=== PATIENT | male | born 1960 | race American Indian/Alaskan Native ===

== ENCOUNTER 2020-12-10 17:35 | Inpatient (IN) | payer OTHER ==
[2020-12-10 21:14] LABS: Basophils % (Auto) 0.3 % (0.0-1.8); Eosinophils # (Auto) 0.1 K/mm3 (0.0-0.4); Eosinophils % (Auto) 1.9 % (0.0-4.3); Hematocrit 40.8 % (35.5-45.6); Lymphocytes # (Auto) 1.6 K/mm3 (1.2-5.4); Lymphocytes % (Auto) 26.2 % (13.4-35.0); Mean Corpuscular HGB Conc 34 % (32-34); Mean Corpuscular Volume 88 fl (84-94); Monocytes # (Auto) 0.6 K/mm3 (0.0-0.8); Monocytes % (Auto) 9.7 % (0.0-7.3); Platelet Count 323 K/mm3 (140-440); Red Blood Count 4.66 M/mm3 (3.65-5.03); Red Cell Distribution Width 14.5 % (13.2-15.2)
--- NOTE | 2020-12-10 21:17 | Cat Scan Report ---
CT HEAD WITHOUT CONTRAST INDICATION / CLINICAL INFORMATION: dizziness, intermittent blurry vision. TECHNIQUE: All CT scans at this location are performed using CT dose reduction for ALARA by means of automated exposure control. COMPARISON: None available. FINDINGS: HEMORRHAGE: None. EXTRA-AXIAL SPACES: Normal in size and morphology for the patient's age. VENTRICULAR SYSTEM: Normal in size and morphology for the patient's age. CEREBRAL PARENCHYMA: Hypodensities in the right basal ganglia and villa radiata likely represent chr onic small lacunar infarcts. MIDLINE SHIFT / HERNIATION: None. CEREBELLUM / BRAINSTEM: Hypodensities in the left cerebellar hemisphere likely representing chronic l acunar infarcts. ORBITS: Normal as visualized. SOFT TISSUES: No significant abnormality. SKULL: No significant abnormality. PARANASAL SINUSES / MASTOID AIR CELLS: Normal as visualized. ADDITIONAL FINDINGS: None. IMPRESSION: 1. No acute intracranial abnormality. 2. Chronic ischemic changes of the right basal ganglia and left cerebellum. Signer Name: Jose Magana MD Signed: 12/10/2020 9:12 PM Workstation Name: [id number]
[2020-12-10 21:25] LABS: INR 0.98 (0.87-1.13)
[2020-12-10 21:26] LABS: Partial Thromboplastin Time 25.7 Sec. (24.2-36.6)
[2020-12-10 21:39] LABS: Calcium 8.8 mg/dL (8.4-10.2)
--- NOTE | 2020-12-11 07:09 | Emergency Department Report ---
ED Dizziness HPI - General Chief Complaint: Dizziness Stated Complaint: DIZZINESS Time Seen by Provider: 12/11/20 06:30 Source: patient Mode of arrival: Ambulatory Limitations: No Limitations - History of Present Illness Initial Comments: 60-year-old male, history of diabetes, neuropathy, CVA, CAD with stent, degenerative disc disease with chronic back pain, presents to ED with dizziness x3 days. Patient states that he is from [place], [place]. Patient states he has been visiting in [place] for a week, staying with a friend. Patient states over the last 3 days he has been feeling dizzy and lightheaded. He reports nausea, no vomiting or diarrhea. He reports cold sweats. He denies any headache, cough, fever, diarrhea, abdominal pain, chest pain. Patient states he has not eaten in 3 days because he has been too dizzy to get up and walk to the kitchen. However, patient reports he has had an appetite. Patient states in September 2020 he was admitted in [place] for a diabetic foot ulcer. Prior to that admission, patient states he has been noncompliant with Metformin. Patient reports that he was diagnosed with diabetes in 2013, but opted to control his diabetes with diet. However, patient had never followed up with any physician to monitor his diabetes. Following his admission in September, patient states he was readmitted in October 2020, 1 month ago for chest pain. Patient states he ended up having a stent placed at that time. During that admission, he states he was told by the physicians that his kidney function was somewhat abnormal. Patient states he has not followed up with a receiving associate store in the office. Patient states he had a syncopal episode while in the waiting room. MD Complaint: dizziness -: days(s) (3) Description: lightheadedness, near-syncope History of Same: No History of Trauma: No Severity: moderate Improves With: remaining still Worsens With: position Associated Symptoms: syncope. denies: chest pain, cough, fever/chills, shortness of breath - Related Data Home Medications Medication Instructions Recorded Confirmed Last Taken Aspirin [Adult Aspirin] 81 mg PO DAILY 12/11/20 12/11/20 Unknown Atorvastatin [Lipitor Tab] 80 mg PO UNK 12/11/20 12/11/20 Unknown Clopidogrel [Plavix] 75 mg PO QDAY 12/11/20 12/11/20 Unknown Insulin Glargine,Hum.rec.anlog 7 unit SQ 12/11/20 12/11/20 Unknown [Lantus Solostar] Losartan [Cozaar] 25 mg PO QDAY 12/11/20 12/11/20 Unknown Nitroglycerin [Nitrostat] 0.4 mg SL [facility] 12/11/20 12/11/20 Unknown carvediloL [Coreg] 12.5 mg PO BID 12/11/20 12/11/20 Unknown Allergies Allergy/AdvReac Type Severity Reaction Status Date / Time No Known Allergies Allergy Unverified 12/10/20 19:51 ED Review of Systems ROS: Stated complaint: DIZZINESS Other details as noted in HPI Comment: All other systems reviewed and negative Constitutional: chills. denies: fever Respiratory: denies: cough, shortness of breath Cardiovascular: denies: chest pain Gastrointestinal: nausea. denies: abdominal pain, vomiting, diarrhea Neurological: denies: headache ED Past Medical Hx - Past Medical History Previous Medical History?: Yes Hx Diabetes: Yes Additional medical history: stent x1-october 2020. ulcer under R toe - Surgical History Past Surgical History?: Yes - Social History Smoking Status: Current Every Day Smoker - Medications Home Medications: Home Medications Medication Instructions Recorded Confirmed Last Taken Type Aspirin [Adult Aspirin] 81 mg PO DAILY 12/11/20 12/11/20 Unknown History Atorvastatin [Lipitor Tab] 80 mg PO [facility] 12/11/20 12/11/20 Unknown History Clopidogrel [Plavix] 75 mg PO QDAY 12/11/20 12/11/20 Unknown History Insulin Glargine,Hum.rec.anlog 7 unit SQ 12/11/20 12/11/20 Unknown History [Lantus Solostar] Losartan [Cozaar] 25 mg PO QDAY 12/11/20 12/11/20 Unknown History Nitroglycerin [Nitrostat] 0.4 mg SL [facility] 12/11/20 12/11/20 Unknown History carvediloL [Coreg] 12.5 mg PO BID 12/11/20 12/11/20 Unknown History ED Physical Exam - General Limitations: No Limitations General appearance: alert, in no apparent distress - Head Head exam: Present: atraumatic, normocephalic - Eye Eye exam: Present: normal appearance, EOMI - ENT ENT exam: Present: mucous membranes moist - Neck Neck exam: Present: normal inspection - Respiratory Respiratory exam: Present: normal lung sounds bilaterally. Absent: respiratory distress - Cardiovascular Cardiovascular Exam: Present: regular rate, normal rhythm - GI/Abdominal GI/Abdominal exam: Present: soft. Absent: distended, tenderness - Extremities Exam Extremities exam: Present: normal inspection - Neurological Exam Neurological exam: Present: alert, oriented X3 - Psychiatric Psychiatric exam: Present: normal affect, normal mood - Skin Skin exam: Present: warm, dry, intact, normal color ED Course Vital Signs 12/10/20 12/11/20 12/11/20 19:51 06:00 06:55 Temperature 98.2 F Pulse Rate 86 65 Respiratory 18 Rate Blood Pressure 135/81 Blood Pressure 127/69 [Right] O2 Sat by Pulse 98 98 Oximetry 12/11/20 12/11/20 12/11/20 07:00 07:16 07:30 Temperature Pulse Rate 64 65 60 Respiratory 9 L 10 L 12 Rate Blood Pressure 122/75 122/75 122/75 Blood Pressure [Right] O2 Sat by Pulse 93 98 99 Oximetry 12/11/20 12/11/20 12/11/20 07:46 08:00 08:15 Temperature Pulse Rate 60 65 68 Respiratory 10 L 8 L 17 Rate Blood Pressure 122/75 122/75 114/73 Blood Pressure [Right] O2 Sat by Pulse 100 98 98 Oximetry 12/11/20 12/11/20 12/11/20 08:31 08:45 09:01 Temperature Pulse Rate 70 77 70 Respiratory 11 L 12 12 Rate Blood Pressure 114/73 114/73 117/88 Blood Pressure [Right] O2 Sat by Pulse 98 99 95 Oximetry 12/11/20 12/11/20 12/11/20 09:15 09:31 09:45 Temperature Pulse Rate 71 78 69 Respiratory 13 12 13 Rate Blood Pressure 117/88 117/88 117/88 Blood Pressure [Right] O2 Sat by Pulse 92 98 97 Oximetry 12/11/20 12/11/20 12/11/20 10:01 10:16 10:31 Temperature Pulse Rate 70 78 74 Respiratory 18 13 13 Rate Blood Pressure 145/82 145/82 145/82 Blood Pressure [Right] O2 Sat by Pulse 98 99 99 Oximetry 12/11/20 12/11/20 12/11/20 10:45 11:01 11:15 Temperature Pulse Rate 80 73 89 Respiratory 17 13 13 Rate Blood Pressure 145/82 152/74 152/74 Blood Pressure [Right] O2 Sat by Pulse 98 97 98 Oximetry 12/11/20 12/11/20 12/11/20 11:31 12:53 13:01 Temperature Pulse Rate 75 65 Respiratory 16 10 L Rate Blood Pressure 152/74 152/74 153/69 Blood Pressure [Right] O2 Sat by Pulse 97 95 94 Oximetry 12/11/20 12/11/20 12/11/20 13:15 13:30 13:31 Temperature Pulse Rate 70 68 68 Respiratory 11 L 11 L Rate Blood Pressure 152/74 125/82 125/82 Blood Pressure [Right] O2 Sat by Pulse 98 95 Oximetry 12/11/20 12/11/20 13:49 14:01 Temperature Pulse Rate 79 70 Respiratory 24 10 L Rate Blood Pressure 125/82 141/81 Blood Pressure [Right] O2 Sat by Pulse Oximetry ED Medical Decision Making - Lab Data Result diagrams: 12/10/20 20:15 12/10/20 20:15 - EKG Data -: EKG Interpreted by [facility] EKG shows normal: sinus rhythm, axis, intervals, QRS complexes, ST-T waves Rate: normal - EKG Data Interpretation: no acute changes - Radiology Data Radiology results: report reviewed, image reviewed - Medical Decision Making 60-year-old male presents to ED with 3-day history of dizziness and lightheadedness. Patient also reports 1 syncopal episode as well. Vital signs are stable. CT head shows evidence of chronic left cerebellar and right basal ganglia infarcts. Labs show evidence of renal insufficiency with BUN and creatinine of 46 and 2.3, and metabolic acidosis with bicarb of 15. Remainder of labs are unremarkable. I spoke with receiving associate store who will consult on the patient. Patient will be admitted by hospitalist, for further management. - Differential Diagnosis CVA, dehydration, arrhythmia Critical care attestation.: If time is entered above; I have spent that time in minutes in the direct care of this critically ill patient, excluding procedure time. ED Disposition Clinical Impression: Syncope, Acute renal failure Disposition: OP ADMIT IP TO THIS HOSP Is pt being admited?: Yes Condition: Stable Time of Disposition: 08:51
--- NOTE | 2020-12-11 08:33 | XRay Report ---
CHEST 1 VIEW, 12/11/2020 7:23 AM CLINICAL INFORMATION/INDICATION: Weakness COMPARISON: None. FINDINGS: SUPPORT DEVICES: None. HEART: The cardiac silhouette is normal in size. LUNGS/PLEURA: The lungs are clear of focal airspace disease or significant pleural effusion. ADDITIONAL FINDINGS: No additional acute findings. IMPRESSION: 1. No evidence of acute cardiopulmonary process. Signer Name: Aleja Jacobsen MD Signed: 12/11/2020 8:28 AM Workstation Name: [id number]
--- NOTE | 2020-12-11 10:11 | History and Physical Report ---
History of Present Illness Date of examination: 12/11/20 Date of admission: 12/11/20 08:51 Chief complaint: Dizziness, syncopal episode History of present illness: 60-year-old obese male patient with significant past medical history of hypertension diabetes mellitus diabetic neuropathy history of CVA coronary artery disease status post stent degenerative disc disease with chronic back pain presented to the emergency room with history of dizziness for the last 3 d ays. Patient is visiting a friend from [place] to [place] for a week, and he had a syncopal episode while waiting in the emergency room Patient denies any chest pain or palpitation denies and denies any fever nausea vomiting or diarrhea, patient denies any cough sick contacts with Covid patients, Initial work-up is consistent with acute kidney injury with elevated creatinine, dehydration CT head without contrast did not show any acute intracranial abnormality Chest x-ray no acute abnormality noted Patient is on multiple home medication claims compliance with the medications Past History Past Medical History: CAD (Status post stent), diabetes, GERD, hypertension, hyperlipidemia, other (Degenerative disc disease) Past Surgical History: PTCA, Other (Back surgery) Social history: smoking. denies: alcohol abuse, prescription drug abuse Family history: hypertension Medications and Allergies Allergies Allergy/AdvReac Type Severity Reaction Status Date / Time No Known Allergies Allergy Unverified 12/10/20 19:51 Home Medications Medication Instructions Recorded Confirmed Last Taken Type Aspirin [Adult Aspirin] 81 mg PO DAILY 12/11/20 12/11/20 Unknown History Atorvastatin [Lipitor Tab] 80 mg PO UNK 12/11/20 12/11/20 Unknown History Clopidogrel [Plavix] 75 mg PO QDAY 12/11/20 12/11/20 Unknown History Insulin Glargine,Hum.rec.anlog 7 unit SQ [facility] 12/11/20 12/11/20 Unknown History [Lantus Solostar] Losartan [Cozaar] 25 mg PO QDAY 12/11/20 12/11/20 Unknown History Nitroglycerin [Nitrostat] 0.4 mg SL UNK 12/11/20 12/11/20 Unknown History carvediloL [Coreg] 12.5 mg PO BID 12/11/20 12/11/20 Unknown History Review of Systems Constitutional: weakness, malaise, no weight loss, no weight gain, no anorexia, no fatigue Ears, nose, mouth and throat: no nasal congestion, no nasal discharge Cardiovascular: syncope, lightheadedness, no chest pain, no orthopnea, no palpitations Respiratory: no cough, no excessive sputum, no shortness of breath, no dyspnea on exertion Gastrointestinal: no abdominal pain, no nausea, no vomiting, no diarrhea Genitourinary Male: no dysuria, no hematuria, no flank pain Musculoskeletal: myalgias, arthritis, no neck stiffness, no neck pain Integumentary: no rash, no lesions Neurological: syncope, no parathesias, no numbness, no tingling, no seizures Psychiatric: no anxiety, no depression Endocrine: no cold intolerance, no heat intolerance Hematologic/Lymphatic: no easy bruising, no easy bleeding Allergic/Immunologic: no urticaria, no allergic rhinitis Exam - Constitutional Vitals: Temp Pulse Resp BP Pulse Ox 98.2 F 68 17 114/73 98 12/10/20 19:51 12/11/20 08:15 12/11/20 08:15 12/11/20 08:15 12/11/20 08:15 General appearance: Present: no acute distress, well-nourished, obese - EENT Eyes: Present: PERRL, EOM intact - Neck Neck: Present: supple, normal ROM - Respiratory Respiratory effort: normal Respiratory: bilateral: diminished, negative: rales, rhonchi, wheezing - Cardiovascular Rhythm: regular Heart Sounds: Present: S1 & S2 - Extremities Extremities: no ischemia, No edema - Abdominal General gastrointestinal: Present: soft, non-tender, non-distended, normal bowel sounds - Integumentary Integumentary: Present: clear, warm - Musculoskeletal Musculoskeletal: strength equal bilaterally, generalized weakness - Psychiatric Psychiatric: appropriate mood/affect, cooperative - Neurologic Neurologic: CNII-XII intact, moves all extremities HEART Score - HEART Score Troponin: Troponin T 0.029 ng/mL (0.00-0.029) 12/10/20 20:15 Results - Labs CBC & Chem 7: 12/10/20 20:15 12/10/20 20:15 Labs: Abnormal lab results 12/10/20 12/10/20 12/10/20 Range/Units 20:02 20:15 20:15 [place] % (Auto) 9.7 H (0.0-7.3) % Carbon Dioxide 15 L (22-30) mmol/L BUN 46 H (9-20) mg/dL Creatinine 2.3 H (0.8-1.3) mg/dL Glucose 143 H (75-100) mg/dL POC Glucose 139 H (70-105) mg/dL Assessment and Plan --Dizziness/syncope; Fall precautions, syncope work-up CT head without contrast use no acute abnormalities Check carotid Doppler, echocardiogram Orthostats, will check PT OT evaluation and recommendations --Acute kidney injury; vasomotor nephropathy Monitor renal function, avoid nephrotoxin Nephrology consulted, renal ultrasound Supportive care --History of coronary artery disease status post PCI; Continue dual antiplatelet therapy, beta-blockers, MARGARET inhibitors and nitrates --Type 2 diabetes mellitus; moderate control Accu-Chek sliding scale coverage ADA diet Long-acting insulin as needed --Hypertension; moderate control Resume home antihypertensives, as needed medications --Obesity; BMI 35.7 Patient needs weight reduction when medically stable Diet modification exercise as tolerated and weight reduction rectocele rectocele metabolic --Dyslipidemia; Low-cholesterol diet, continue statin --Acidosis; Secondary to acute kidney injury, reduce IV hydration Closely monitor --DVT prophylaxis; Heparin renal dose --Full CODE STATUS Physical therapy, Occupational Therapy We will closely monitor patient and adjust management as needed Plan of care reviewed with the patient and his nurse
[2020-12-11] MEDS ORDERED: NON-FORMULARY EACH (Atorvastatin [Lipitor] 80 MG Tablet) PO SCH (10:15)
[2020-12-11] MEDS ORDERED: SODIUM CHLORIDE 0.9% 1000 ML 1,000 ML IV SCH (10:30)
--- NOTE | 2020-12-11 10:34 | Electrocardiograph Report ---
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 No previous ECG available for comparison Electronically Signed On 12-11-2020 10:33:45 EDT by Anant Esteban
--- NOTE | 2020-12-11 12:21 | Consultation ---
History of Present Illness - Reason for Consult Consult date: 12/11/20 acute renal failure, chronic renal failure - History of Present Illness 60-year-old male presented to ED with dizziness x3 days. He reported nausea, no vomiting or diarrhea. in September 2020 he was admitted in [place] for a diabetic foot ulcer. he was readmitted in October 2020, 1 month ago for chest pain. Patient states he ended up having a stent placed at that time, he was told then he had abnormal kidney function but has not followed up with a kinesiology internship as an outpatient. renal consult was requested for management of abnormal kidne function. Medications and Allergies Allergies Allergy/AdvReac Type Severity Reaction Status Date / Time No Known Allergies Allergy Unverified 12/10/20 19:51 Home Medications Medication Instructions Recorded Confirmed Last Taken Type Aspirin [Adult Aspirin] 81 mg PO DAILY 12/11/20 12/11/20 Unknown History Atorvastatin [Lipitor Tab] 80 mg PO UNK 12/11/20 12/11/20 Unknown History Clopidogrel [Plavix] 75 mg PO QDAY 12/11/20 12/11/20 Unknown History Insulin Glargine,Hum.rec.anlog 7 unit SQ AC 12/11/20 12/11/20 Unknown History [Lantus Solostar] Losartan [Cozaar] 25 mg PO QDAY 12/11/20 12/11/20 Unknown History Nitroglycerin [Nitrostat] 0.4 mg SL UNK 12/11/20 12/11/20 Unknown History carvediloL [Coreg] 12.5 mg PO BID 12/11/20 12/11/20 Unknown History Active Meds: Active Medications Aspirin (Aspirin Ec 81 Mg Tab) 81 mg PO DAILY [facility] Atorvastatin Calcium (Atorvastatin 40 Mg Tab) 80 mg PO QHS [facility] Carvedilol (Carvedilol 12.5 Mg Tab) 12.5 mg PO BID [facility] Clopidogrel Bisulfate (Clopidogrel 75 Mg Tab) 75 mg PO QDAY [facility] Heparin Sodium (Porcine) (Heparin 5,000 Unit/1 Ml Vial) 5,000 unit SUB-Q Q12HR [facility] Sodium Chloride (Nacl 0.9% 1000 Ml) 1,000 mls @ 100 mls/hr IV DIRECT [facility] Insulin Human Lispro (Insulin Lispro 100 Unit/Ml) 0 unit SUB-Q ACHS [facility]; Protocol Losartan Potassium (Losartan 25 Mg Tab) 25 mg PO QDAY [facility] Review of Systems All systems: negative (dizzines) Exam - Vital Signs Vital signs: Vital Signs Temp Pulse Resp BP Pulse Ox 98.2 F 86 18 127/69 98 12/10/20 19:51 12/10/20 19:51 12/10/20 19:51 12/10/20 19:51 12/10/20 19:51 Results - Lab Results 12/12/20 05:40 12/12/20 05:40 Most recent lab results Calcium 8.8 mg/dL (8.4-10.2) 12/10/20 20:15 Assessment and Plan renal failure, likely acute on chronic Dizziness DM type II HTN hold losartn for now cont IVF will check urine lytes will check renal US renally dose meds strict I&O daily weight
[2020-12-11] MEDS: CLOPIDOGREL 75 MG TAB PO SCH (13:30)
[2020-12-11] MEDS: HEPARIN 5,000 UNIT/1 ML VIAL SUB-Q SCH ×2 (13:30→22:44)
[2020-12-11] MEDS: ASPIRIN EC 81 MG TAB PO SCH (13:30)
[2020-12-11] MEDS: carvediloL 12.5 MG TAB PO SCH ×2 (13:30→22:40)
[2020-12-11] MEDS: INSULIN LISPRO 100 UNIT/ML SUB-Q SCH ×3 (14:05→22:41)
--- NOTE | 2020-12-11 15:36 | Ultrasound Report ---
ULTRASOUND RENAL INDICATION / CLINICAL INFORMATION: Renal failure. COMPARISON: None available. FINDINGS: RIGHT KIDNEY: Length = 10.9 cm. [normal > 9 cm] No hydronephrosis, discrete renal mass, or renal calculi. Mildly increased echogenicity of the renal parenchyma is noted. LEFT KIDNEY: Length = 9.9 cm. [normal > 9 cm] No hydronephrosis, discrete renal mass, or renal calculi. Mildly increased echogenicity of the renal parenchyma is noted. URINARY BLADDER: No significant abnormality. FREE FLUID: None. ADDITIONAL FINDINGS: None. IMPRESSION: No evidence of hydronephrosis. Mildly increased echogenic appearance of the kidneys bilaterally, sugg estive of chronic medical renal disease. Signer Name: Geremias Raman MD Signed: 12/11/2020 3:31 PM Workstation Name: [id number]
[2020-12-12 06:38] LABS: Basophils % (Auto) 0.2 % (0.0-1.8); Eosinophils # (Auto) 0.1 K/mm3 (0.0-0.4); Eosinophils % (Auto) 1.8 % (0.0-4.3); Hemoglobin 13.5 gm/dl (11.8-15.2); Lymphocytes % (Auto) 13.2 % (13.4-35.0); Mean Corpuscular HGB Conc 35 % (32-34); Mean Corpuscular Volume 87 fl (84-94); Monocytes # (Auto) 0.9 K/mm3 (0.0-0.8); Monocytes % (Auto) 12.8 % (0.0-7.3); Platelet Count 278 K/mm3 (140-440); Red Blood Count 4.49 M/mm3 (3.65-5.03); Red Cell Distribution Width 14.4 % (13.2-15.2)
[2020-12-12 06:47] LABS: Calcium 8.9 mg/dL (8.4-10.2)
[2020-12-12] MEDS: INSULIN LISPRO 100 UNIT/ML SUB-Q SCH ×7 (07:16→22:11)
[2020-12-12] MEDS ORDERED: NON-FORMULARY EACH (Insulin Glargine,Hum.Rec.Anlog [Lantus Solostar] 100 UNIT/ML Insuln.Pe SQ SCH (07:30)
[2020-12-12] MEDS ORDERED: LOSARTAN 25 MG TAB PO SCH (10:00)
[2020-12-12 10:18] LABS: Chol/HDL Ratio 3.43 %
[2020-12-12] MEDS: CLOPIDOGREL 75 MG TAB PO SCH (10:37)
[2020-12-12] MEDS: HEPARIN 5,000 UNIT/1 ML VIAL SUB-Q SCH ×2 (10:37→22:10)
[2020-12-12] MEDS: carvediloL 12.5 MG TAB PO SCH ×2 (10:37→22:10)
[2020-12-12] MEDS: ASPIRIN EC 81 MG TAB PO SCH (10:37)
--- NOTE | 2020-12-12 11:54 | Progress Note ---
Assessment and Plan renal failure, likely acute on chronic Dizziness DM type II HTN rising Cr for unclear reason, unknow baseline renal US -ve for obstruction cont NS urine studies were not collected, will recheck and order secondary GN, vasculitis and paraprotein work up renally dose meds strict I&O daily weight Subjective Date of service: 12/12/20 Principal diagnosis: CHRISTINE Interval history: denies acute issues, comfortable Objective - Vital Signs Vital signs: Vital Signs - 12hr 12/12/20 12/12/20 12/12/20 01:00 03:31 07:51 Temperature 97.6 F 98.1 F Pulse Rate 69 60 54 L Respiratory 16 18 Rate Blood Pressure 147/89 118/63 O2 Sat by Pulse 90 98 Oximetry - General Appearance General appearance: well-developed, well-nourished, appears stated age EENT: ATNC, PERRL, mucous membranes moist Neck: no JVD, no carotid bruit Respiratory: Present: Clear to Ascultation. Absent: Rales, Ronchi Cardiology: regular, S1S2 Gastrointestinal: normoactive bowel sounds, no hypoactive bowel sounds, no absent bowel sounds, no tenderness, no distended Integumentary: no rash, warm and dry Neurologic: no focal deficit, no asterixis, alert and oriented x3 Musculoskeletal: other (no edema in BLE) Psychiatric: cooperative - Lab 12/12/20 05:40 12/12/20 05:40 Most recent lab results Calcium 8.9 mg/dL (8.4-10.2) 12/12/20 05:40 Phosphorus 5.80 mg/dL (2.5-4.5) H 12/12/20 05:40 Medications & Allergies - Medications Allergies/Adverse Reactions: Allergies No Known Allergies Allergy (Unverified 12/10/20 19:51) Home Medications: Home Medications Medication Instructions Recorded Confirmed Last Taken Type Aspirin [Adult Aspirin] 81 mg PO DAILY 12/11/20 12/11/20 Unknown History Atorvastatin [Lipitor Tab] 80 mg PO UNK 12/11/20 12/11/20 Unknown History Clopidogrel [Plavix] 75 mg PO QDAY 12/11/20 12/11/20 Unknown History Insulin Glargine,Hum.rec.anlog 7 unit SQ AC 12/11/20 12/11/20 Unknown History [Lantus Solostar] Losartan [Cozaar] 25 mg PO QDAY 12/11/20 12/11/20 Unknown History Nitroglycerin [Nitrostat] 0.4 mg SL UNK 12/11/20 12/11/20 Unknown History carvediloL [Coreg] 12.5 mg PO BID 12/11/20 12/11/20 Unknown History Active Medications: Generic Name Dose Route Start Last Admin Trade Name Adam PRN Reason Stop Dose Admin Aspirin 81 mg 12/11/20 13:00 12/12/20 10:37 Aspirin Ec 81 Mg Tab PO 81 mg DAILY [facility] Administration Atorvastatin Calcium 80 mg 12/11/20 22:00 12/11/20 22:40 Atorvastatin 40 Mg Tab PO 80 mg QHS [facility] Administration Carvedilol 12.5 mg 12/11/20 13:00 12/12/20 10:37 Carvedilol 12.5 Mg Tab PO 12.5 mg BID [facility] Administration Clopidogrel Bisulfate 75 mg 12/11/20 13:00 12/12/20 10:37 Clopidogrel 75 Mg Tab PO 75 mg QDAY [facility] Administration Heparin Sodium (Porcine) 5,000 unit 12/11/20 13:00 12/12/20 10:37 Heparin 5,000 Unit/1 Ml Vial SUB-Q 5,000 unit Q12HR [facility] Administration Sodium Chloride 1,000 mls @ 100 mls/hr 12/11/20 10:30 Nacl 0.9% 1000 Ml IV DIRECT [facility] Insulin Human Lispro 0 unit 12/11/20 11:30 12/12/20 10:37 Insulin Lispro 100 Unit/Ml SUB-Q 2 unit ACHS [facility] Administration Protocol Insulin Human Lispro 10 unit 12/12/20 06:00 12/12/20 07:16 Insulin Lispro 100 Unit/Ml SUB-Q Not Given 0600,1200,1800 [facility]
--- NOTE | 2020-12-12 12:46 | Vascular Lab Report ---
DUPLEX DOPPLER ULTRASOUND CAROTID, BILATERAL INDICATION / CLINICAL INFORMATION: Syncope. COMPARISON: None available. FINDINGS: RIGHT CAROTID: No significant abnormality - PLAQUE ESTIMATE (%): < 50% - CCA velocity: 57.4 cm/sec. - ICA peak systolic velocity: 60 cm/sec. - ICA/CCA PSV Ratio: 1.05 Right Vertebral Artery: Antegrade flow. LEFT CAROTID: No significant abnormality - PLAQUE ESTIMATE (%): < 50% - CCA velocity: 64.8 cm/sec. - ICA peak systolic velocity: 75.7 cm/sec. - ICA/CCA PSV Ratio: 1.17 Left Vertebral Artery: Antegrade flow. IMPRESSION: 1. Right Internal Carotid Artery: Less than 50% diameter stenosis. 2. Left Internal Carotid Artery: Less than 50% diameter stenosis. Velocity criteria are extrapolated from diameter data as defined by the Society of Radiologists in Ul trasound Consensus Conference, Radiology 2003; 229;340-346. NO STENOSIS (NORMAL) - Plaque = none; ICA PSV < 125 cm/sec; ICA/CCA PSV Ratio < 2.0 <50% STENOSIS - Plaque < 50%; ICA PSV < 125 cm/sec; ICA/CCA PSV Ratio < 2.0 50-69% STENOSIS - Plaque > 50%; ICA PSV = 125-230 cm/sec; ICA/CCA PSV Ratio = 2.0-4.0 >70% BUT <100% STENOSIS - Plaque > 50%; ICA PSV > 230 cm/sec; ICA/CCA PSV Ratio > 4.0 NEAR OCCLUSION - Plaque = visible lumen; ICA PSV = high/low/none; ICA/CCA PSV Ratio = variable TOTAL OCCLUSION - Plaque = no lumen; ICA PSV = none; ICA/CCA PSV Ratio = N/A Signer Name: Evangelista Blair DO Signed: 12/12/2020 12:42 PM Workstation Name: [id number]
--- NOTE | 2020-12-12 12:52 | Progress Note ---
Assessment and Plan Assessment and plan: --Dizziness/syncope; No new episodes of syncope since admission Syncope work-up CT head, carotid Doppler, echocardiogram within normal limits Fall precautions, Orthostats, will check PT OT evaluation and recommendations --Acute kidney injury; worsening renal function Nephrology following vasomotor nephropathy Monitor renal function, avoid nephrotoxin Nephrology consulted, renal ultrasound Supportive care --History of coronary artery disease status post PCI; Continue dual antiplatelet therapy, beta-blockers, MARGARET inhibitors and nitrates --Type 2 diabetes mellitus; moderate control Accu-Chek sliding scale coverage ADA diet Long-acting insulin as needed --Hypertension; moderate control Resume home antihypertensives, as needed medications --Obesity; BMI 35.7 Patient needs weight reduction when medically stable Diet modification exercise as tolerated and weight reduction rectocele rectocele metabolic --Dyslipidemia; Low-cholesterol diet, continue statin --Acidosis; Secondary to acute kidney injury, reduce IV hydration Closely monitor --DVT prophylaxis; Heparin renal dose --Full CODE STATUS Physical therapy, Occupational Therapy We will closely monitor patient and adjust management as needed Plan of care reviewed with the patient and his nurse Brief history and hospital course; 60-year-old male patient was admitted with syncope, dizziness Initial work-up consistent with acute kidney injury, syncope work-up so far negative Follow renal function, disposition per nephrology 12/12/2020; Syncope work-up negative, no new episodes Worsening renal function, nephrology following Disposition per nephrology History Interval history: I have seen and examined the patient at the bedside Patient's chart and medications reviewed Patient did not have any new episodes of syncope Vital signs noted Hospitalist Physical - Constitutional Vitals: Temp Pulse Resp BP Pulse Ox 98.1 F 55 L 18 118/63 97 12/12/20 07:51 12/12/20 10:00 12/12/20 07:51 12/12/20 07:51 12/12/20 10:00 General appearance: Present: no acute distress, well-nourished, obese - EENT Eyes: Present: PERRL, EOM intact - Neck Neck: Present: supple, normal ROM - Respiratory Respiratory effort: normal Respiratory: bilateral: diminished, negative: rales, rhonchi, wheezing - Cardiovascular Rhythm: regular Heart Sounds: Present: S1 & S2 - Extremities Extremities: no ischemia, No edema - Abdominal General gastrointestinal: soft, non-tender, non-distended, normal bowel sounds - Integumentary Integumentary: Present: clear, warm - Psychiatric Psychiatric: appropriate mood/affect, cooperative - Neurologic Neurologic: moves all extremities HEART Score - HEART Score Troponin: Troponin T 0.031 ng/mL (0.00-0.029) H 12/12/20 05:40 Results - Labs CBC & Chem 7: 12/13/20 05:34 12/13/20 05:34 Labs: Laboratory Last Values WBC 7.4 K/mm3 (4.5-11.0) 12/12/20 05:40 RBC 4.49 M/mm3 (3.65-5.03) 12/12/20 05:40 Hgb 13.5 gm/dl (11.8-15.2) 12/12/20 05:40 Hct 39.0 % (35.5-45.6) 12/12/20 05:40 MCV 87 fl (84-94) 12/12/20 05:40 MCH 30 pg (28-32) 12/12/20 05:40 MCHC 35 % (32-34) H 12/12/20 05:40 RDW 14.4 % (13.2-15.2) 12/12/20 05:40 Plt Count 278 K/mm3 (140-440) 12/12/20 05:40 Lymph % (Auto) 13.2 % (13.4-35.0) L 12/12/20 05:40 [place] % (Auto) 12.8 % (0.0-7.3) H 12/12/20 05:40 Eos % (Auto) 1.8 % (0.0-4.3) 12/12/20 05:40 Baso % (Auto) 0.2 % (0.0-1.8) 12/12/20 05:40 Lymph # (Auto) 1.0 K/mm3 (1.2-5.4) L 12/12/20 05:40 [place] # (Auto) 0.9 K/mm3 (0.0-0.8) H 12/12/20 05:40 Eos # (Auto) 0.1 K/mm3 (0.0-0.4) 12/12/20 05:40 Baso # (Auto) 0.0 K/mm3 (0.0-0.1) 12/12/20 05:40 Seg Neutrophils % 72.0 % (40.0-70.0) H 12/12/20 05:40 Seg Neutrophils # 5.3 K/mm3 (1.8-7.7) 12/12/20 05:40 PT 13.6 Sec. (12.2-14.9) 12/10/20 20:15 INR 0.98 (0.87-1.13) 12/10/20 20:15 APTT 25.7 Sec. (24.2-36.6) 12/10/20 20:15 Thrombin Time 16.6 Sec. (15.1-19.6) 12/10/20 20:15 Sodium 135 mmol/L (137-145) L 12/12/20 05:40 Potassium 3.9 mmol/L (3.6-5.0) 12/12/20 05:40 Chloride 97.7 mmol/L (98-107) L 12/12/20 05:40 Carbon Dioxide 23 mmol/L (22-30) D 12/12/20 05:40 Anion Gap 18 mmol/L 12/12/20 05:40 BUN 60 mg/dL (9-20) H 12/12/20 05:40 Creatinine 3.4 mg/dL (0.8-1.3) H 12/12/20 05:40 Estimated GFR 23 ml/min 12/12/20 05:40 BUN/Creatinine Ratio 18 % 12/12/20 05:40 Glucose 152 mg/dL (75-100) H 12/12/20 05:40 POC Glucose 215 mg/dL (70-105) H 12/12/20 11:57 Calcium 8.9 mg/dL (8.4-10.2) 12/12/20 05:40 Phosphorus 5.80 mg/dL (2.5-4.5) H 12/12/20 05:40 Lactate Dehydrogenase 210 units/L (91-180) H 12/11/20 15:30 Total Creatine Kinase 204 units/L (55-170) H 12/12/20 05:40 CK-MB (CK-2) 4.0 ng/mL (0.0-4.0) 12/12/20 05:40 CK-MB (CK-2) Rel Index 1.9 (0-4) 12/12/20 05:40 Troponin T 0.031 ng/mL (0.00-0.029) H 12/12/20 05:40 Triglycerides 121 mg/dL (2-149) 12/12/20 05:40 Cholesterol 127 mg/dL (50-199) 12/12/20 05:40 LDL Cholesterol Direct 80 mg/dL (50-130) 12/12/20 05:40 HDL Cholesterol 37 mg/dL (40-59) L 12/12/20 05:40 Cholesterol/HDL Ratio 3.43 % 12/12/20 05:40 Byrd/IV: Voiding Method Toilet Active Medications - Current Medications Current Medications: Generic Name Dose Route Start Last Admin Trade Name Freq PRN Reason Stop Dose Admin Aspirin 81 mg 12/11/20 13:00 12/12/20 10:37 Aspirin Ec 81 Mg Tab PO 81 mg DAILY JENA Administration Atorvastatin Calcium 80 mg 12/11/20 22:00 12/11/20 22:40 Atorvastatin 40 Mg Tab PO 80 mg QHS JENA Administration Carvedilol 12.5 mg 12/11/20 13:00 12/12/20 10:37 Carvedilol 12.5 Mg Tab PO 12.5 mg BID JENA Administration Clopidogrel Bisulfate 75 mg 12/11/20 13:00 12/12/20 10:37 Clopidogrel 75 Mg Tab PO 75 mg QDAY JENA Administration Heparin Sodium (Porcine) 5,000 unit 12/11/20 13:00 12/12/20 10:37 Heparin 5,000 Unit/1 Ml Vial SUB-Q 5,000 unit Q12HR JENA Administration Sodium Chloride 1,000 mls @ 100 mls/hr 12/11/20 10:30 Nacl 0.9% 1000 Ml IV DIRECT [facility] Insulin Human Lispro 0 unit 12/11/20 11:30 12/12/20 10:37 Insulin Lispro 100 Unit/Ml SUB-Q 2 unit ACHS [facility] Administration Protocol Insulin Human Lispro 10 unit 12/12/20 06:00 12/12/20 07:16 Insulin Lispro 100 Unit/Ml SUB-Q Not Given 0600,1200,1800 [facility]
[2020-12-12 14:30] LABS: Smear for Schistocytes None Seen
[2020-12-12 16:19] LABS: Creatinine,Urine 114.3 mg/dL (0.1-20.0)
[2020-12-12 16:25] LABS: Creatinine,Urine 113.4 mg/dL (0.1-20.0); Protein/Creatinine Ratio,Urine 0.44
[2020-12-13 06:40] LABS: Basophils % (Auto) 0.1 % (0.0-1.8); Eosinophils # (Auto) 0.1 K/mm3 (0.0-0.4); Eosinophils % (Auto) 1.7 % (0.0-4.3); Hematocrit 39.4 % (35.5-45.6); Hemoglobin 13.4 gm/dl (11.8-15.2); Lymphocytes # (Auto) 1.1 K/mm3 (1.2-5.4); Mean Corpuscular HGB Conc 34 % (32-34); Mean Corpuscular Volume 86 fl (84-94); Monocytes # (Auto) 0.6 K/mm3 (0.0-0.8); Monocytes % (Auto) 9.3 % (0.0-7.3); Platelet Count 315 K/mm3 (140-440); Red Cell Distribution Width 14.2 % (13.2-15.2)
--- NOTE | 2020-12-13 09:22 | Progress Note ---
Assessment and Plan renal failure, likely acute on chronic Dizziness DM type II HTN Cr conto to fluctuate, down to 3.1 today can be discharged from renal standpoint, to be followed as an outpatient renal US -ve for obstruction cont NS secondary GN, vasculitis and paraprotein work up ordered, can be followed as an outpatient renally dose meds strict I&O daily weight Subjective Date of service: 12/13/20 Principal diagnosis: CHRISTINE Interval history: denies acute issues, no overnight events Objective - Vital Signs Vital signs: Vital Signs - 12hr 12/12/20 12/12/20 12/12/20 22:00 22:10 22:57 Temperature 97.8 F Pulse Rate 81 93 H 80 Respiratory 18 Rate Respiratory 20 Rate [Bilateral Lower Leg] Blood Pressure 129/64 127/67 O2 Sat by Pulse 98 98 Oximetry 12/13/20 03:22 Temperature 97.8 F Pulse Rate 69 Respiratory 18 Rate Respiratory Rate [Bilateral Lower Leg] Blood Pressure 147/82 O2 Sat by Pulse 97 Oximetry - General Appearance General appearance: well-developed, well-nourished, appears stated age EENT: ATNC, PERRL, mucous membranes moist Neck: no JVD, no carotid bruit Respiratory: Present: Clear to Ascultation. Absent: Rales, Ronchi Cardiology: regular, S1S2 Gastrointestinal: normoactive bowel sounds, no tenderness, no distended, no masses Integumentary: no rash, warm and dry Neurologic: no focal deficit, no asterixis, alert and oriented x3 Musculoskeletal: other (no edema in BLE) Psychiatric: mood/affect appropriate - Lab 12/13/20 05:34 12/13/20 05:34 Most recent lab results Calcium 9.0 mg/dL (8.4-10.2) 12/13/20 05:34 Phosphorus 4.20 mg/dL (2.5-4.5) D 12/13/20 05:34 Urine Creatinine 113.4 mg/dL (0.1-20.0) H 12/12/20 Unknown Urine Creatinine 114.3 mg/dL (0.1-20.0) H 12/12/20 Unknown Urine Sodium 28 mmol/L 12/12/20 Unknown Urine Total Protein 50 mg/dL (5-11.8) H 12/12/20 Unknown Medications & Allergies - Medications Allergies/Adverse Reactions: Allergies No Known Allergies Allergy (Unverified 12/10/20 19:51) Home Medications: Home Medications Medication Instructions Recorded Confirmed Last Taken Type Aspirin [Adult Aspirin] 81 mg PO DAILY 12/11/20 12/11/20 Unknown History Atorvastatin [Lipitor Tab] 80 mg PO UNK 12/11/20 12/11/20 Unknown History Clopidogrel [Plavix] 75 mg PO QDAY 12/11/20 12/11/20 Unknown History Insulin Glargine,Hum.rec.anlog 7 unit SQ AC 12/11/20 12/11/20 Unknown History [Lantus Solostar] Losartan [Cozaar] 25 mg PO QDAY 12/11/20 12/11/20 Unknown History Nitroglycerin [Nitrostat] 0.4 mg SL UNK 12/11/20 12/11/20 Unknown History carvediloL [Coreg] 12.5 mg PO BID 12/11/20 12/11/20 Unknown History Active Medications: Generic Name Dose Route Start Last Admin Trade Name Freq PRN Reason Stop Dose Admin Aspirin 81 mg 12/11/20 13:00 12/12/20 10:37 Aspirin Ec 81 Mg Tab PO 81 mg DAILY JENA Administration Atorvastatin Calcium 80 mg 12/11/20 22:00 12/12/20 22:10 Atorvastatin 40 Mg Tab PO 80 mg QHS JENA Administration Carvedilol 12.5 mg 12/11/20 13:00 12/12/20 22:10 Carvedilol 12.5 Mg Tab PO 12.5 mg BID JENA Administration Clopidogrel Bisulfate 75 mg 12/11/20 13:00 12/12/20 10:37 Clopidogrel 75 Mg Tab PO 75 mg QDAY JENA Administration Heparin Sodium (Porcine) 5,000 unit 12/11/20 13:00 12/12/20 22:10 Heparin 5,000 Unit/1 Ml Vial SUB-Q 5,000 unit Q12HR JENA Administration Sodium Chloride 1,000 mls @ 100 mls/hr 12/11/20 10:30 Nacl 0.9% 1000 Ml IV DIRECT JENA Insulin Human Lispro 0 unit 12/11/20 11:30 12/12/20 22:11 Insulin Lispro 100 Unit/Ml SUB-Q 3 unit ACHS JENA Administration Protocol Insulin Human Lispro 10 unit 12/12/20 06:00 12/12/20 17:53 Insulin Lispro 100 Unit/Ml SUB-Q 10 unit 0600,1200,1800 JENA Administration
[2020-12-13] MEDS: carvediloL 12.5 MG TAB PO SCH (10:55)
[2020-12-13] MEDS: ASPIRIN EC 81 MG TAB PO SCH (10:55)
[2020-12-13] MEDS: CLOPIDOGREL 75 MG TAB PO SCH (10:55)
[2020-12-13] MEDS: HEPARIN 5,000 UNIT/1 ML VIAL SUB-Q SCH (10:55)
[2020-12-13] MEDS: INSULIN LISPRO 100 UNIT/ML SUB-Q SCH ×4 (10:56→15:20)
[2020-12-13 12:04] LABS: INR 0.92 (0.87-1.13)
--- NOTE | 2020-12-13 12:39 | Discharge Summary ---
Providers - Providers Date of Admission: 12/12/20 16:24 Date of discharge: 12/13/20 Attending physician: MANSOOR GRAJEDA 12/11/20 08:48 Consult to Physician [CONS] Stat Comment: Consulting Provider: SCOTT CERNA Physician Instructions: Reason For Exam: ARF [facility] Reason for admission: Dizziness, syncope, acute kidney injury Condition: Stable Pertinent studies: CT head without contrast; no acute abnormality Carotid Doppler; no acute abnormalities Echocardiogram; normal ejection fraction Renal ultrasound; chronic medical disease, no acute abnormalities Chest x-ray; no acute abnormalities Hospital course: 60-year-old male patient with past medical history of coronary artery disease with PCI, hypertension, diabetes mellitus and dyslipidemia was admitted through emergency room .with syncope, dizziness Initial work-up consistent with acute kidney injury, syncope work-up was negative, CT head without contrast, carotid Doppler echocardiogram findings are within normal limits. Patient placed on fall precautions, evaluated by nephrology, appropriately managed, renal function was gradually improving, creatinine was trending down. Patient ambulated in the room and in the hallway without dizziness. Orthostatics checked, Today patient is comfortable no new complaints, vital signs on the day of discharge are within normal limits, nephrology cleared for discharge and follow- up for further evaluation as outpatient. Patient also complains that he is knees are sometimes weak, bilateral knee exam no acute abnormalities noted, patient was advised to follow orthopedic surgeon and PMD as outpatient for further evaluation and management. Patient is obese with BMI of 37.6 , patient was advised weight reduction dietary modification and exercise as tolerated when medically stable patient would also follow-up nephrology per schedule., Patient is hemodynamically and clinically stable at discharge Discharge diagnosis: --Dizziness/syncope; No new episodes of syncope since admission Syncope work-up CT head, carotid Doppler, echocardiogram within normal limits --Acute kidney injury; vasomotor nephropathy renal function gradually improving Monitor renal function, avoid nephrotoxin Follow nephrology for further evaluation and management --History of coronary artery disease status post PCI; Continue current cardiac medications MARGARET inhibitors held due to acute kidney injury --Type 2 diabetes mellitus; moderate control, continue current medications --Hypertension; moderate control/continue current meds --Obesity; BMI 35.7 Patient needs weight reduction when medically stable --Dyslipidemia;Low-cholesterol diet, continue statin --Acidosis;Secondary to acute kidney injury, plenty oral fluids Cleared by consultants for discharge and follow-up per schedule Stable at discharge Disposition: [id number] TO HOME OR SELFCARE Final Discharge Diagnosis (Prints w/discharge instructions): Dizziness/syncope[work-up negative]. Acute kidney injury[creatinine trending down]. h/o coronary artery disease status post PCI/stable. Type 2 diabetes mellitus/moderate control. Hypertension/stable. Dyslipidemia. Metabolic acidosis[due to acute kidney injury]. Obesity; BMI 37.6[advised weight reduction] Time spent for discharge: 35 min Core Measure Documentation - Palliative Care Palliative Care/ Comfort Measures: Not Applicable - Core Measures Any of the following diagnoses?: none Exam - Constitutional Vitals: Temp Pulse Resp BP Pulse Ox 98.4 F 69 18 156/96 97 12/13/20 12:10 12/13/20 12:10 12/13/20 12:10 12/13/20 12:10 12/13/20 12:10 General appearance: Present: no acute distress, well-nourished, obese - EENT Eyes: Present: PERRL, EOM intact - Neck Neck: Present: supple, normal ROM - Respiratory Respiratory effort: normal Respiratory: bilateral: diminished, negative: rales, rhonchi, wheezing - Cardiovascular Rhythm: regular Heart Sounds: Present: S1 & S2 - Extremities Extremities: no ischemia, No edema - Abdominal General gastrointestinal: Present: soft, non-tender, non-distended, normal bowel sounds - Integumentary Integumentary: Present: clear, warm - Musculoskeletal Musculoskeletal: strength equal bilaterally - Psychiatric Psychiatric: appropriate mood/affect, cooperative - Neurologic Neurologic: moves all extremities Plan Activity: advance as tolerated, fall precautions Diet: diabetic, renal Additional Instructions: Advised to drink plenty of oral fluids. Follow-up with harness installer in 1 week. Advised to follow-up with orthopedic surgeon Dr. Franco in 1 to 2 weeks. If you have worsening symptoms contact MD or go to the emergency room as needed. Stop losartan tablets[will worsen the kidney function]. I added new hypertension medication hydralazine 25 mg 3 times a day. Advised diet modification exercise as tolerated and weight reduction when med ically stable Follow up with: BLAIR CRAIG MD [Primary Care Provider] - 3-5 Days SCOTT CERNA MD [Staff Physician] - 7 Days PAMELA FRANCO MD [Staff Physician] - 14 Days Prescriptions: hydrALAZINE [Apresoline TAB] 25 mg PO Q8HR #60 tablet
[2020-12-13 16:33] VITALS: BP 154/93
[2020-12-15 10:33] LABS: Myeloperoxidase Antibody <1.0 AI (<1.0)
[2020-12-15 20:35] LABS: ANA Screen, IFA Negative (Negative)
[2020-12-18 23:34] LABS: Albumin 3.1 g/dL (3.8-4.8); Gamma Globulin 1.4 g/dL (0.8-1.7)
== END 2020-12-13 17:29 | disposition home or self-care (01) | DRG 683 ==
LOC: ED 17:35 → 4A 12-11 08:51 → OBSVTOIN 12-12 16:24
PROVIDERS: ADMIT Internal Medicine; ATTEND Internal Medicine
DX: N17.0 Acute kidney failure with tubular necrosis (principal); E87.2 Acidosis; R55 Syncope and collapse; I10 Essential (primary) hypertension; E66.9 Obesity, unspecified; E78.5 Hyperlipidemia, unspecified; E11.40 Type 2 diabetes mellitus with diabetic neuropathy, unspecified; F17.200 Nicotine dependence, unspecified, uncomplicated; I25.10 Atherosclerotic heart disease of native coronary artery without angina pectoris; M51.36 Other intervertebral disc degeneration, lumbar region; Z79.899 Other long term (current) drug therapy; Z68.35 Body mass index [BMI] 35.0-35.9, adult; Z95.1 Presence of aortocoronary bypass graft; Z79.891 Long term (current) use of opiate analgesic; Z86.73 Personal history of transient ischemic attack (TIA), and cerebral infarction without residual deficits; Z79.01 Long term (current) use of anticoagulants; Z79.4 Long term (current) use of insulin; Z95.5 Presence of coronary angioplasty implant and graft; Z82.49 Family history of ischemic heart disease and other diseases of the circulatory system
CPT/HCPCS: 36415; 70450; 71045; 76770; 80048; 80061; 82550; 82553; 82570; 82962; 83520; 83615; 84100; 84156; 84165; 84300; 84484; 84520; 84550; 85025; 85610; 85670; 85730; 86021; 86038; 86160; 86706; 86803; 87806; 93005; 93306; 93880; 99406; G0378; A9270-GY; J1644; J1815